=== PATIENT | male | born 1975 | race Hispanic/Latino ===

== ENCOUNTER → 2017-08-16 | Outpatient (CLI) | payer OTHER ==
--- NOTE | 2017-08-16 13:14 | Diagnostic Imaging Report ---
PROCEDURE: Frontal and lateral views of the chest. COMPARISON: None. INDICATIONS: CHEST X-RAY FOR WORK [facility] FINDINGS: Lines/tubes: None. Lungs: The lungs are well inflated and clear. There is no evidence of pneumonia or pulmonary edema. Pleura: There is no pleural effusion or pneumothorax. Heart and mediastinum: The heart and the mediastinum are normal. Bones: No acute bony abnormality. IMPRESSION: No acute cardiopulmonary disease. Dictated by: Vladimir Barrera M.D. on 08/16/2017 at 13:13 Electronically approved by: Vladimir Barrera M.D. on 08/16/2017 at 13:13
== END ==
LOC: RAD 12:29
PROVIDERS: ATTEND Specialist
DX: R05 Cough (principal)
CPT/HCPCS: 71046